=== PATIENT | female | born 1985 | race Caucasian/White ===

== ENCOUNTER 2023-12-13 16:46 | Emergency (ER) | payer BC, SELFPAY ==
[2023-12-13 16:52] VITALS: BP 163/105; PULSE 100; TEMP 36.8; O2SAT 95; BMI 55.7
--- NOTE | 2023-12-13 17:16 | CT_ITS ---
The [address] [address] Patient Name: CHARLOTTE FARIAS MRN: [id number] date: 1985 Sex: F Assigned Patient Location: ER Current Patient Location: ED.MAIN Accession/Order Number: [id number] Exam Date: 12/13/2023 17:38 Report Date: 12/13/2023 19:45 At the request of: MELY ODEN Procedure: CT head/brain wo con EXAM: CT head/brain wo con HISTORY: headache recent trauma, closed cranial injury. COMPARISON: None. TECHNIQUE: CT head noncontrast. Axial scans with reformatted coronal and sagittal images. Individualized radiation dose reduction used for this exam. FINDINGS: No intracranial hemorrhage. No mass or edema seen. Ventricles midline without mass effect or shift. CSF densities deep white matter probably prominent perivascular spaces. No skull fracture seen. Incidental hyperostosis of the frontal bone. No fluid levels and visualized mastoid, middle ear cavities or sinuses. CT/CT head/brain wo con IMPRESSION: Negative for fracture, intracranial hemorrhage or other acute abnormality. Electronically authenticated by: KEVIN HOGAN Date: 12/13/2023 19:45
[2023-12-13] MEDS: ONDANSETRON 4 MG RAPDIS TABLET SL (18:04)
[2023-12-13] MEDS: DEXAMETHASONE SOD PHOS 10 MG/ML VIAL PO (18:04)
[2023-12-13] MEDS: KETOROLAC TROMETHAMINE 60 MG/2 ML VIAL IM (18:05)
--- NOTE | 2023-12-13 18:38 | ED.GENADUL1 ---
HPI HPI - General Adult General Chief complaint: Head Injury Stated complaint: Head Injury Time Seen by Provider: 12/13/23 17:07 Source: patient Mode of arrival: walk-in Limitations: no limitations History of Present Illness HPI narrative: 38-year-old female presents here with a chief complaint of a headache. She states she rolled out of bed 5 days ago striking her head. She states she woke up on the floor is uncertain as to whether she had passed out. She is alert and oriented this time no acute distress vital signs are stable. She denies worst like of her life sudden onset or thunderclap sensation. Complains of some dizziness. She also admits to having history of migraine headaches. Complains of headache posterior occipital region which ranges around to the front of the head as well. Otherwise no acute distress. Related Data Home Medications ?Medication ?Instructions ?Recorded ?Confirmed amlodipine 5 mg tablet 5 mg PO DAILY 12/13/23 12/13/23 atorvastatin 40 mg tablet 40 mg PO DAILY 12/13/23 12/13/23 cholecalciferol (vitamin D3) 50 2,000 unit PO DAILY 12/13/23 12/13/23 mcg (2,000 unit) capsule etonogestrel 0.12 mg-ethinyl 1 vag ring vaginal 12/13/23 estradiol 0.015 mg/24 hr vaginal ring (NuvaRing) fluoxetine 40 mg capsule 80 mg PO BID 12/13/23 12/13/23 fluticasone propionate 50 intranasal 12/13/23 mcg/actuation nasal spray,suspension lamotrigine 150 mg tablet 150 mg PO Q12H 12/13/23 12/13/23 metformin 1,000 mg tablet 1,000 mg PO DAILY 12/13/23 12/13/23 montelukast 10 mg tablet 10 mg PO DAILY 12/13/23 12/13/23 Allergies Allergy/AdvReac Type Severity Reaction Status Date / Time levofloxacin (From Levaquin) Allergy Intermediate Hives Verified 12/13/23 17:04 Penicillins Allergy Intermediate Hives Verified 12/13/23 16:52 Opioid HPI Opioid Management Most Recent Opioid Data: Last Pain Scale 7 12/13/23 18:05 12/13/23 Last MAR Pain Assessment 12/13/23 18:05 Review of Systems ROS Narrative All Systems are negative except as noted/marked.All systems reviewed and otherwise negative PFSH [facility] Medical History (Updated 12/13/23 @ 19:49 by Micki Escalera) HTN (hypertension) ?I10 - Essential (primary) hypertension (ICD-10) Schizoaffective disorder ?F25.9 - Schizoaffective disorder, unspecified (ICD-10) Migraine ?G43.909 - Migraine, unspecified, not intractable, without status migrainosus (ICD-10) Obesity (BMI 30.0-34.9) ?E66.811 - Obesity, class 1 (ICD-10) Social History Little interest or pleasure in doing things: not at all Feeling down, depressed, or hopeless: several days Exam Narrative Exam Narrative: Nurses note and vital signs reviewed and patient is not hypoxic. General: The patient appears well and in no apparent distress. Patient is resting comfortably on cart. Skin: Warm, dry, no pallor noted. There is no rash noted. Head: Normocephalic, atraumatic neck : supple, no nuchal rigidity Eye: Normal conjunctiva, no drainage, EOMI. PERRL Ears, Nose, Mouth, and Throat: oral mucosa is moist. Nares patent. Mouth without vesicles. Ear canals patent. Tm's without Erythema Cardiovascular: Regular Rate and Rhythm Respiratory: Patient is in no distress, no accessory muscle use, lungs are clear to auscultation, no wheezing, rales or rhonchi Back: non-tender, no CVA tenderness bilaterally to percussion. Musculoskeletal: The patient has no evidence of calf tenderness, no pitting edema, symmetrical pulses noted bilaterally Neurological: A&O x4, normal speech Psychiatric: Cooperative Constitutional Vital Signs, click to edit/add: Last Vital Signs Temp 98.2 F 12/13/23 16:52 Pulse 100 H 12/13/23 16:52 Resp 16 12/13/23 16:52 BP 158/86 H 12/13/23 18:40 Pulse Ox 95 12/13/23 16:52 O2 Del Method Room Air 12/13/23 16:52 Course Vital Signs Vital signs: Vital Signs Temperature 98.2 F 12/13/23 16:52 Pulse Rate 100 H 12/13/23 16:52 Respiratory Rate 16 12/13/23 16:52 Blood Pressure 163/105 H 12/13/23 16:52 Pulse Oximetry 95 12/13/23 16:52 Oxygen Delivery Method Room Air 12/13/23 16:52 Temperature 98.2 F 12/13/23 16:52 Pulse Rate 100 H 12/13/23 16:52 Respiratory Rate 16 12/13/23 16:52 Blood Pressure 158/86 H 12/13/23 18:40 Pulse Oximetry 95 12/13/23 16:52 Oxygen Delivery Method Room Air 12/13/23 16:52 Medical Decision Making Differential Diagnosis Differential Diagnosis: headache, migraine, head injury Medical Records Medical records reviewed: Yes I reviewed the patient's medical records Medical records narrative: Patient presented to the emergency room chief complaint of a 6-day history of a headache after falling out of bed. CT scan read negative by radiology. Patient was medicated here with Toradol Zofran and Decadron. Symptoms have resolved. Length of stay in the emergency room was prolonged due to waiting on CT scan reading. Patient is made aware of results agrees with plan of care and discharged home. Lab Data Lab results reviewed: Yes I reviewed the patient's lab results Imaging Data CT scan - head: Radiologist's impression: ITS Impressions Head CT 12/13/23 17:16 IMPRESSION: Negative for fracture, intracranial hemorrhage or other acute abnormality. Electronically authenticated by: KEVIN HOGAN Date: 12/13/2023 19:45 ECG Data Interpretation: 1806 heart rate 72 bpm AR interval 164 ms QRS duration 88 ms, normal sinus rhythm no ST elevation or depression, no STEMI Discharge Plan Discharge Chief Complaint: Head Injury Clinical Impression: Headache Patient Disposition: Home, Self-Care Time of Disposition Decision: 19:49 Condition: Good Prescriptions / Home Meds: No Action amlodipine 5 mg tablet 5 mg PO DAILY atorvastatin 40 mg tablet 40 mg PO DAILY cholecalciferol (vitamin D3) 50 mcg (2,000 unit) capsule 2,000 unit PO DAILY etonogestrel-ethinyl estradiol [NuvaRing] 0.12-0.015 mg/24 hr ring 1 vag ring VAGINAL fluoxetine 40 mg capsule 80 mg PO BID montelukast 10 mg tablet 10 mg PO DAILY fluticasone propionate 50 mcg/actuation spray,suspension INTRANASAL metformin 1,000 mg tablet 1,000 mg PO DAILY lamotrigine 150 mg tablet 150 mg PO Q12H Print Language: Albanian Instructions: General Headache (ED) Referrals: Physician,Non-Staff, MD [Primary Care Provider] - 1 week
[2023-12-13 18:40] VITALS: BP 158/86
== END 2023-12-13 20:12 | disposition home or self-care (01) ==
PROVIDERS: Emergency Provider Emergency Medicine
DX: R51.9 Headache, unspecified (principal)
CPT/HCPCS: 70450; 96372; 99284; J1100; J1885; Q0162